=== PATIENT | male | born 1940 | race Caucasian/White ===

== ENCOUNTER → 2020-04-06 08:53 | Outpatient (CLI) | payer MEDICARE, SELFPAY ==
[2020-04-07 15:32] LABS: Covid-19 Nasal PCR Sendout Lex Not Detected
== END ==
PROVIDERS: Visit Provider Internal Medicine Cardiovascular Disease
DX: Z20.828 Contact with and (suspected) exposure to other viral communicable diseases (principal)
CPT/HCPCS: U0004

== ENCOUNTER → 2020-10-28 11:35 | Outpatient (CLI) | payer MEDICARE, OTHER, SELFPAY | PROVIDERS: PCP Internal Medicine; Visit Provider Urology | DX: Z20.822 Contact with and (suspected) exposure to COVID-19 (principal) | CPT/HCPCS: U0003 ==

== ENCOUNTER → 2020-11-15 08:22 | Outpatient (CLI) | payer MEDICARE, SELFPAY | PROVIDERS: PCP Internal Medicine; Visit Provider Urology | DX: Z20.822 Contact with and (suspected) exposure to COVID-19 (principal) | CPT/HCPCS: U0003 ==

== ENCOUNTER → 2021-02-24 11:06 | Outpatient (CLI) | payer MEDICARE, SELFPAY | PROVIDERS: Visit Provider Urology | DX: Z20.822 Contact with and (suspected) exposure to COVID-19 (principal) ==

== ENCOUNTER → 2021-02-25 09:40 | Outpatient (CLI) | payer MEDICARE, SELFPAY | PROVIDERS: Visit Provider Urology | DX: Z20.822 Contact with and (suspected) exposure to COVID-19 (principal) | CPT/HCPCS: U0003 ==

== ENCOUNTER 2022-06-17 14:14 | Emergency (ER) | payer MEDICARE, SELFPAY ==
[2022-06-17 15:10] VITALS: BP 127/81; PULSE 81; RESP 18; TEMP 36.3; O2SAT 98; BMI 32.5
--- NOTE | 2022-06-17 15:57 | EXP.UTC ---
Discharge Plan Disposition Patient Disposition: Home, Self-Care Condition: Good Prescriptions Prescriptions: New triamcinolone acetonide 0.1 % cream 1 applic topical BID Qty: 80 0RF Rx Instructions: apply to rash as directed Referrals Follow up/Referrals: Eric Barragan [Primary Care Provider] - See instructions Activity Restrictions/Add. Instructions Additional Instructions/Restrictions: Oatmeal bathes may help with itching and clearing of rash Use topical cream as prescribed Follow up with your Family Doctor if no improvement or any worsening of symptoms Straight to ER if any life threatening symptoms Over the counter Benadryl may help with itching if you can take speak with your Family Doctor Clinical Impressions Clinical Impression: Rash and nonspecific skin eruption Instructions Patient Instructions: DI for Rash, Triamcinolone Topical Discharge ED Provider: Latonya Elizalde [facility] [place] HPI General Stated complaint: rash on back Mode of Arrival: Ambulatory Source of Information: Patient Limitations: No Limitations Time Seen by Provider: 06/17/22 15:57 Description of Symptoms (Recalled from Triage Doc. by RN): PATIENT C/O RASH ALL OVER BODY X 2 DAYS HEENT Symptoms (Recalled from RN notes): No Resp Symptoms (Recalled from RN notes): No Skin Symptoms (Recalled from RN notes): Yes MS Symptoms (Recalled from RN notes): No Functional Status (Recalled from RN notes): WNL History of Present Illness Provider Complaint: Patient states that he has had rash all over his body State that it is on his back, arms and legs State that he has tried calamine lotion and creams and they havent helped State that today when he was still itching and the rash wasnt any better he came in to get it checked Related Data Previous Rx's Medication Instructions Recorded triamcinolone acetonide 0.1 % 1 applic topical BID #80 grams 06/17/22 topical cream Allergies Allergy/AdvReac Type Severity Reaction Status Date / Time No Known Allergies Allergy Verified 06/17/22 15:22 Worker's Comp Is this a Worker's Comp case?: No [facility] Medical History (Updated 06/17/22 @ 16:13 by Latonya Elizalde APRN) Atrial fibrillation Diabetes mellitus, type 2 Hyperlipidemia Hypertension Kidney stone Urinary tract infection Surgical History (Updated 06/17/22 @ 15:22 by Brit Ramires RN) History of appendectomy History of cholecystectomy History of tonsillectomy Social History (Updated 06/17/22 @ 15:22 by Brit Ramires RN) Smoking Status: Unknown if ever smoked alcohol intake: never current occupational status: retired Travel in the last 8 weeks: None ROS Obtained: Yes All systems reviewed & no additional complaints except as documented and Yes Systems reviewed as appropriate & no additional complaints except as documented Constitutional Constitutional: Reports system reviewed and no additional complaints, except as documented and Reports as per HPI ENT Ears, Nose, Mouth, and Throat: Reports system reviewed and no additional complaints, except as documented and Reports as per HPI Cardiovascular Cardiovascular: Reports system reviewed and no additional complaints, except as documented and Reports as per HPI Musculoskeletal Musculoskeletal: Reports system reviewed and no additional complaints, except as documented and Reports as per HPI Integumentary/Breasts Skin/Breast: Reports system reviewed and no additional complaints, except as documented, Reports as per HPI, Reports pruritus and Reports rash Physical Exam General General appearance: alert and in no apparent distress Respiratory Respiratory exam: Present normal lung sounds bilaterally; Absent respiratory distress or wheezes Cardiovascular Cardiovascular exam: Present regular rate, normal rhythm and normal heart sounds Neurological Exam Neurological exam: Present alert, oriented X3 and normal gait Skin Skin exam: Present rash (appears like contact vance
[2022-06-17 16:15] VITALS: BP 127/81; PULSE 81; RESP 18; TEMP 36.3; O2SAT 98
== END 2022-06-17 16:18 | disposition home or self-care (01) ==
PROVIDERS: Emergency Provider Nurse Practitioner; PCP Internal Medicine
DX: R21 Rash and other nonspecific skin eruption (principal)
CPT/HCPCS: 99212; G0463

== ENCOUNTER 2023-10-19 14:00 | Outpatient (RCR) | payer MEDICARE, SELFPAY | END 2023-10-19 14:05 | disposition home or self-care (01) | LOC: PT 14:00 | PROVIDERS: PCP Internal Medicine; Visit Provider Physical Medicine & Rehabilitation | DX: R53.1 Weakness (principal); C67.9 Malignant neoplasm of bladder, unspecified | CPT/HCPCS: 97110; 97163; 97164; 97530 ==